=== PATIENT | female | born 1995 ===

== ENCOUNTER 2016-06-24 10:55 | Emergency (ER) | payer SELFPAY ==
[~2016-06-24] VITALS: Ht 165.1 cm; Wt 79.5 kg
[2016-06-24 10:56] VITALS: BP 124/76; PULSE 75; RESP 16; TEMP 98.2; O2SAT 98
--- NOTE | 2016-06-24 11:26 | PD ---
Physical Exam Date Seen by Provider: Jun 24, 2016 Time Seen by Provider: 11:24 Narrative 20 year old female presents to the emergency department for evaluation of right knee pain. She states it popped out and popped back in approximately 1 week ago and now feels swollen. 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 VSS. Patient awaiting bed placement. Data Data Last Documented VS Vital Signs Date Time Temp Pulse Resp B/P Pulse Ox O2 Delivery O2 Flow Rate FiO2 06/24/16 10:56 98.2 75 16 124/76 98 MDM Supervised Visit with WILVER: Karishma Gonzalez Jun 24, 2016 11:26
--- NOTE | 2016-06-24 11:37 | PD ---
HPI . right knee pain Chief Complaint: Pain: Acute or Chronic Time Seen by Provider: 11:37 Travel History International Travel<30 days: No Contact w/Intl Traveler<30days: No Traveled to known affect area: No History of Present Illness HPI 20-year-old female here with complaints of right knee pain. Apparently last week patient somehow dislocated her knee during a time with performance and tells me that it's been hurting since. She complains of left knee pain as well and tells me that it always pops out, but this right knee has been hurting her a lot more. She decided to come to the emergency department for further evaluation. 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 She denies any head injury. [facility] Past Medical History ?: Not LMP: 06/09/16 Social History Tobacco Use: No Allergies-Medications (Allergen,Severity, Reaction): Coded Allergies: No Known Allergies (Unverified , 06/24/16) Reported Meds & Prescriptions Reported Meds & Active Scripts Active No Active Prescriptions or Reported Medications Review of Systems General / Constitutional: No: Fever Eyes: No: Visual changes HENT: No: Headaches Cardiovascular: No: Chest Pain or Discomfort Respiratory: No: Shortness of Breath Gastrointestinal: No: Abdominal Pain Genitourinary: No: Dysuria Musculoskeletal: Positive: Pain (right knee pain ) Skin: No Rash Neurologic: No: Weakness Psychiatric: No: Depression Endocrine: No: Polydipsia Hematologic/Lymphatic: No: Easy Bruising Physical Exam Narrative GENERAL: AAO x 3, no acute distress, Well-nourished, well-developed patient. SKIN: Warm and dry. No visible rashes or bruising. HEAD: Normocephalic and atraumatic. EYES: No scleral icterus. No injection or drainage. EOM intact, PERRLA ENT: No nasal drainage noted. Mucous membranes pink. Airway patent. NECK: Supple, trachea midline. No JVD. CARDIOVASCULAR: Regular rate and rhythm without murmurs, gallops, or rubs. RESPIRATORY: Breath sounds equal bilaterally. No accessory muscle use. No rhonchi or rales. GASTROINTESTINAL: Abdomen soft, non-tender, nondistended. EXTREMITIES: No cyanosis or edema. small effusion of right medial knee. no edema , no ecchymosis, ROM in normal passively, actively patient has pain. Pain elicited with valgus and vargus stress test. BACK: Nontender without obvious deformity. No CVA tenderness. PSYCH: AAO x 3, normal affect. Data Data Last Documented VS Vital Signs Date Time Temp Pulse Resp B/P Pulse Ox O2 Delivery O2 Flow Rate FiO2 06/24/16 10:56 98.2 75 16 124/76 98 MDM Medical Decision Making Medical Screen Exam Complete: Yes Emergency Medical Condition: No Medical Record Reviewed: Yes Differential Diagnosis Internal derangement of the knee, meniscal injury, less likely knee fracture Narrative Course 20-year-old female here with complaints of right knee pain. Apparently last week patient somehow dislocated her knee during a time with performance and tells me that it's been hurting since. She complains of left knee pain as well and tells me that it always pops out, but this right knee has been hurting her a lot more. She decided to come to the emergency department for further evaluation. 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 She denies any head injury. This will need to be follow outpt, ortho A medical screening exam was performed: At the time of evaluation the presenting medical condition was determined not to be of an emergent nature. The patient was given the option of receiving additional care, but declined. Patient was given options for additional community resources from which to obtain care. The Patient Has Been advised to seek medical attention for their presenting complaint. The patient has been advised to return to the ER at any time if an emergent condition develops. Diagnosis Primary Impression: Encounter for medical screening examination Scripts No Active Prescriptions or Reported Meds Condition: Stable Jesenia Callahan Jun 24, 2016 11:37
== END 2016-06-24 11:55 | disposition left against medical advice (07) ==
LOC: NEPK 10:55
DX: M25.561 Pain in right knee (principal); R22.41 Localized swelling, mass and lump, right lower limb; M25.562 Pain in left knee
CPT/HCPCS: 99281

== ENCOUNTER 2016-11-21 01:58 | Emergency (ER) | payer OTHER ==
[~2016-11-21] VITALS: Ht 162.6 cm; Wt 78.2 kg
[2016-11-21 02:02] VITALS: BP 132/65; PULSE 96; RESP 16; TEMP 98.9; O2SAT 100
[2016-11-21] MEDS ORDERED: IBUP200C PO (02:09)
--- NOTE | 2016-11-21 02:50 | PD ---
HPI Chief Complaint: Cold / Flu Symptoms Time Seen by Provider: 02:23 Travel History International Travel<30 days: No Contact w/Intl Traveler<30days: No Traveled to known affect area: No History of Present Illness HPI The patient is a 20 year old female who presents to the [facility] emergency department with a history of cough, congestion that she reports began 4 days ago. She reports that she became sick after she was in contact with a close friend with an upper respiratory infection. She reports that her close friend is feeling improved. The patient reports that she's had a subjective fever with chills, body aches, clear rhinorrhea, chest congestion and a cough that is at times productive of clear to green sputum. Otherwise on review of systems, the patient denies any neck pain, chest pain, shortness of breath, abdominal pain, vomiting, diarrhea, urinary symptoms, or neurologic symptoms. LMP: Last week PFSH Past Medical History Narrative Medical The patient's past medical history is reportedly none. Medical History: Denies Significant Hx Tetanus Vaccination: > 5 Years Influenza Vaccination: No ?: Not LMP: 11/14/16 Past Surgical History Surgical History: No Previous Surgery Social History Alcohol Use: Yes Tobacco Use: No Substance Use: No Allergies-Medications (Allergen,Severity, Reaction): Coded Allergies: No Known Allergies (Unverified , 06/24/16) Reported Meds & Prescriptions Reported Meds & Active Scripts Active Reported Ibuprofen 200 Mg Cap 200 Mg PO Q6H PRN Review of Systems Except as stated in HPI: all other systems reviewed are Neg General / Constitutional: Positive: Fever, Chills Eyes: No: Visual changes HENT: Positive: Sore Throat, Rhinorrhea, Congestion, No: Headaches Cardiovascular: No: Chest Pain or Discomfort Respiratory: Positive: Cough, No: Shortness of Breath Gastrointestinal: No: Nausea, Vomiting, Diarrhea, Abdominal Pain, Changes in Bowel Habits, Indigestion, Loss of Appetite Genitourinary: No: Dysuria Musculoskeletal: Positive: Myalgias, No: Pain Skin: No Rash Neurologic: No: Weakness Psychiatric: No: Depression Endocrine: No: Polydipsia Hematologic/Lymphatic: No: Easy Bruising Physical Exam Narrative General: The patient is a well-developed well-nourished female in no acute distress. Head and Neck exam: Head is normocephalic atraumatic. Eyes: EOMI, pupils are equal round and reactive to light. Ears: Tympanic membranes are visualized bilaterally and pearly with a good cone of light, no erythema or exudate. Nose: Midline septum with erythematous edematous nasal mucosa and a clear nasal discharge. Mouth: Dentition unremarkable. Moist mucus membranes. Posterior oropharynx is mildly erythematous. No exudates. No tonsillar hypertrophy. Uvula midline. Airway patent. Neck: No palpable lymphadenopathy. No nuchal rigidity. No thyromegaly. Cardiovascular: Regular rate and rhythm without murmurs, gallops, or rubs. Lungs: Clear to auscultation bilaterally. No wheezes, rhonchi, or rales. Abdomen: Soft, without tenderness to palpation in all 4 quadrants of the abdomen. No guarding, rebound, or rigidity. Normal bowel sounds are audible. No tenderness on palpation of McBurney's point. Extremities: No clubbing, cyanosis, or edema. 2+ pulses in all 4 extremities. No calf tenderness on palpation. Back: No costovertebral angle tenderness to palpation. Neurologic Exam: Grossly nonfocal. Skin Exam: No rash noted. Intact skin that is warm and dry. Data Data Last Documented VS Vital Signs Date Time Temp Pulse Resp B/P (MAP) Pulse Ox O2 Delivery O2 Flow Rate FiO2 11/21/16 02:02 98.9 96 16 132/65 (87) 100 Room Air Orders Orders Influenzae A/B Antigen (11/21/16 02:54) Chest, Single Ap (11/21/16 02:54) MDM Medical Decision Making Medical Screen Exam Complete: Yes Emergency Medical Condition: Yes Medical Record Reviewed: Yes Interpretation(s) Last Impressions Chest X-Ray 11/21/16 0254 Signed Impressions: Service Date/Time: Monday, November 21, 2016 03:19 - CONCLUSION: No evidence of acute cardiopulmonary disease. Cl Palencia MD Differential Diagnosis Viral upper respiratory infection, versus sinusitis, versus pneumonia, versus influenza Narrative Course During the course of the patients emergency department visit, the patients history, examination, and differential diagnosis were reviewed with the patient. The patient had influenza testing ordered, chest x-ray ordered. The patient was initially provided Tylenol for pain and she reports taking ibuprofen prior to arrival. The patients laboratory studies were reviewed and remarkable for influenza antigen is negative. Radiology studies were reviewed and remarkable for a chest x-ray shows no acute cardiopulmonary disease. The patient reports having a sick contact of a close friend his symptoms have resolved. The patient's symptoms are most likely related to a viral upper respiratory infection. I recommended symptom control with Tylenol or ibuprofen as needed is written on the package for fever or body aches. I recommended that she push fluids and get plenty of rest. I recommended guaifenesin to help with congestion. The patient is given a prescription for benzonatate capsules to be taken as needed for cough. The patient is resting comfortably and feels better, is alert and in no distress. The patients results and examination findings were discussed with the patient. The repeat examination is unremarkable and benign. The history, exam, diagnostic testing, and current condition do not suggest any significant pathology to warrant further testing, continued ED treatment, admission, or surgical evaluation at this point. The vital signs have been stable. The patient does not have uncontrollable pain, intractable vomiting, or other significant symptoms. The patient's condition is stable and appropriate for discharge. The patient will pursue further outpatient evaluation with a primary care physician or other designated or consulting physician as indicated in the discharge instructions. The patient expressed understanding and was agreeable with this plan. Diagnosis Primary Impression: Upper respiratory infection, viral Referrals: Primary Care Physician 1 week Patient Instructions: General Instructions, Upper Respiratory Infection (ED) Additional Instructions: The patient's symptoms are most likely related to a viral upper respiratory infection. I recommended symptom control with Tylenol or ibuprofen as needed is written on the package for fever or body aches. I recommended that she push fluids and get plenty of rest. I recommended guaifenesin to help with congestion. The patient is given a prescription for benzonatate capsules to be taken as needed for cough. Med/Other Pt SpecificInfo: Prescription(s) given Scripts Benzonatate (Benzonatate) 200 Mg Cap 200 MG PO TID Y for COUGH, #12 CAP 0 Refills Prov: Sandra Koroma MD 11/21/16 Disposition: 01 DISCHARGE HOME Condition: Stable Sandra Koroma MD Nov 21, 2016 02:50
--- NOTE | 2016-11-21 03:21 | RADRPT ---
EXAM DATE/TIME: 11/21/2016 03:19 [facility] COMPARISON: No previous studies available for comparison. INDICATIONS : Cough. Flu like symptoms. MEDICAL HISTORY : None. SURGICAL HISTORY : None. ENCOUNTER: Initial ACUITY: 1 day PAIN SCORE: 0/10 LOCATION: Bilateral chest FINDINGS: A single view of the chest demonstrates the lungs to be symmetrically aerated without evidence of mas s, infiltrate or effusion. The cardiomediastinal contours are unremarkable. Osseous structures are intact. CONCLUSION: No evidence of acute cardiopulmonary disease. Cl Palencia MD on November 21, 2016 at 3:19 Board Certified Radiologist. This report was verified electronically.
[2016-11-21] MEDS ORDERED: BENZ1CAP34 PO (03:59)
== END 2016-11-21 04:06 | disposition home or self-care (01) ==
LOC: NEPE 01:58
DX: J06.9 Acute upper respiratory infection, unspecified (principal)
CPT/HCPCS: 71010; 87804; 99284